=== PATIENT | female | born 1965 | race Caucasian/White ===

== ENCOUNTER 2018-03-13 00:11 | Emergency (ER) | payer SELFPAY ==
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
== END 2018-03-13 02:21 | disposition home or self-care (01) ==
LOC: ER 00:11
DX: Z00.00 Encounter for general adult medical examination without abnormal findings (principal); F32.9 Major depressive disorder, single episode, unspecified; F31.9 Bipolar disorder, unspecified; Z88.5 Allergy status to narcotic agent
CPT/HCPCS: 99283